=== PATIENT | male | born 1985 | race Caucasian/White ===

== ENCOUNTER 2023-08-25 07:15 | Emergency (ER) | payer BC, OTHER ==
[2023-08-25] MEDS ORDERED: MELA10CA6 PO (07:30)
[2023-08-25] MEDS ORDERED: BISACODYL 10MG SUPP PR ONE (08:35)
[2023-08-25] MEDS ORDERED: COLA100C5 PO (11:30)
[2023-08-25] MEDS ORDERED: MIRA3350 PO (11:30)
[2023-08-25 11:39] VITALS: BP 139/71; TEMP 98.2; O2SAT 95
== END 2023-08-25 11:51 | disposition home or self-care (01) ==
LOC: M ED 07:15
DX: K59.00 Constipation, unspecified (principal); Z79.899 Other long term (current) drug therapy

== ENCOUNTER 2023-10-10 12:02 | Emergency (ER) | payer BC, OTHER ==
[~2023-10-10] VITALS: Ht 175.3 cm; Wt 108.9 kg
[~2023-10-10 12:02] MED LIST: COLA100C5 PO; MELA10CA6 PO; MIRA3350 PO
[2023-10-10 13:27] LABS: BASO % 0.4 % (0.0-1.0); EOS % 0.2 % (0.0-3.0); HEMATOCRIT 50.6 % (42.0-52.0); HEMOGLOBIN 17.2 g/dl (13.5-17.5); LYMPH % 9.6 % (24.0-44.0); MEAN CORPUSCULAR HEMOGLOBIN 30.6 pg (27.0-33.0); MEAN CORPUSCULAR VOLUME 89.9 fl (80.0-96.0); MONO # 1.1 10^3/uL (0.0-0.8); MONO % 10.5 % (2.0-8.0); NEUTROPHILS # 8.3 10^3/uL (1.5-8.5); NEUTROPHILS % 78.9 % (36.0-66.0); PLATELET COUNT, AUTOMATED 227 10^3/uL (150-450); RED BLOOD COUNT 5.63 10^6/uL (4.30-6.10); WHITE BLOOD COUNT 10.5 10^3/uL (4.0-10.0)
[2023-10-10 13:52] LABS: LIPASE 31 U/L (12-53)
[2023-10-10 13:54] LABS: ALKALINE PHOSPHATASE 140 U/L (46-116); ALT/SGPT 55 U/L (7.0-40); AST/SGOT 17 U/L (<34); BILIRUBIN,DIRECT 0.7 MG/DL (<0.4); BILIRUBIN,TOTAL 2.4 MG/DL (0.3-1.2); BLOOD UREA NITROGEN 8 MG/DL (9-23); CALCIUM LEVEL 9.4 MG/DL (8.5-10.1); CARBON DIOXIDE LEVEL 26 MMOL/L (20-31); CHLORIDE LEVEL 106 MMOL/L (98-107); CREATININE FOR GFR 0.95 MG/DL (0.70-1.30); GLOMERULAR FILTRATION RATE > 60.0 (>60); GLUCOSE, FASTING 93 MG/DL (60-100); SODIUM LEVEL 138 MMOL/L (136-145); TOTAL PROTEIN 7.3 G/DL (5.7-8.2)
[2023-10-10] MEDS: CIPROFLOXACIN 400 MG in IV 1 EA IV ONE (16:36)
[2023-10-10] MEDS: NS 1,000 ML IV ONE (16:37)
[2023-10-10] MEDS: metroNIDAZOLE 500 MG in IV 1 EA IV ONE (17:54)
[2023-10-10 18:08] VITALS: BP 129/80; TEMP 98.9; O2SAT 100
[2023-10-10] MEDS ORDERED: AMOX875T2 PO (18:30)
== END 2023-10-10 19:03 | disposition home or self-care (01) ==
LOC: EDBD 12:02 → M ED 12:02
DX: K35.80 Unspecified acute appendicitis (principal); Z79.2 Long term (current) use of antibiotics; Z79.899 Other long term (current) drug therapy
CPT/HCPCS: 74176; 80048; 80076; 81001; 83690; 85025; 87635; 96365; 96366; 99284; J0744; J1836

== ENCOUNTER → 2024-03-09 | Outpatient (REF) | payer OTHER, BC ==
[~2024-03-09] MED LIST changes: +AMOX875T2 PO
[2024-03-09 13:49] LABS: RSV AMPLIFICATION NEGATIVE (NEGATIVE)
== END ==
LOC: M LAB REF 12:14
PROVIDERS: ATTEND Physician Assistant Medical
DX: R50.9 Fever, unspecified (principal)

== ENCOUNTER 2024-04-26 09:41 | Inpatient (IN) | payer BC, OTHER ==
[2024-04-26] VITALS (24 sets, daily range): BP systolic 78–127; BP diastolic 48–82; TEMP 96.3–98.1; O2SAT 71–100
[~2024-04-26] VITALS: Ht 188 cm; Wt 116.5 kg
[2024-04-26] MEDS: ROCURONIUM BROMIDE 50MG/5ML VIAL IV ONE (10:00)
[2024-04-26] MEDS: ETOMIDATE INJ 20MG/10ML VIAL IV ONE (10:00)
[2024-04-26] MEDS: NS 1,000 ML IV SCH (10:14)
[2024-04-26] MEDS: propofoL 1,000 MG in IV 1 EA IV SCH ×2 (10:20→14:05)
[2024-04-26 10:27] LABS: BASO # 0.1 10^3/uL (0.0-0.2); BASO % 0.8 % (0.0-1.0); EOS # 0.3 10^3/uL (0.0-0.5); EOS % 2.5 % (0.0-3.0); HEMATOCRIT 48.1 % (42.0-52.0); HEMOGLOBIN 16.7 g/dl (13.5-17.5); LYMPH % 20.5 % (24.0-44.0); MEAN CORPUSCULAR HEMOGLOBIN 30.1 pg (27.0-33.0); MEAN CORPUSCULAR HGB CONC 34.7 g/dl (32.0-36.5); MEAN CORPUSCULAR VOLUME 86.8 fl (80.0-96.0); MONO % 10.2 % (2.0-8.0); NEUTROPHILS # 6.5 10^3/uL (1.5-8.5); NEUTROPHILS % 65.6 % (36.0-66.0); PLATELET COUNT, AUTOMATED 358 10^3/uL (150-450); RED BLOOD COUNT 5.54 10^6/uL (4.30-6.10); WHITE BLOOD COUNT 9.9 10^3/uL (4.0-10.0)
[2024-04-26 10:33] LABS: ABG BASE EXCESS -3.7 (-2.0-2.0); ABG HCO3 21.2 MMOL/L (22.0-26.0); ABG O2 SATURATION 96.6 % (95.0-99.0); ABG PARTIAL PRESSURE CO2 38.1 mmHg (35.0-45.0); ABG PARTIAL PRESSURE O2 84.8 mmHg (75.0-100.0); ABG STANDARD HCO3 21.4 MMOL/L. (22.0-26.0); ABG TOTAL CO2 22.4 MMOL/L (22.0-29.0); ABG pH (ARTERIAL) 7.363 UNITS (7.350-7.450)
[2024-04-26 10:43] LABS: ETHYL ALCOHOL (ETHANOL) < 0.003 % (0.000-0.010)
[2024-04-26 10:45] LABS: ALBUMIN 4.1 G/DL (3.2-5.2); ALKALINE PHOSPHATASE 122 U/L (46-116); ALT/SGPT 52 U/L (7.0-40); AST/SGOT 23 U/L (<34); BILIRUBIN,DIRECT 0.4 MG/DL (<0.4); BILIRUBIN,TOTAL 1.2 MG/DL (0.3-1.2); BLOOD UREA NITROGEN 14 MG/DL (9-23); CALCIUM LEVEL 9.9 MG/DL (8.5-10.1); CARBON DIOXIDE LEVEL 25 MMOL/L (20-31); CHLORIDE LEVEL 109 MMOL/L (98-107); CPK CREATINE PHOSPHOKINASE 106 U/L (46-171); CREATININE FOR GFR 0.84 MG/DL (0.70-1.30); GLOMERULAR FILTRATION RATE > 60.0 (>60); GLUCOSE, FASTING 117 MG/DL (60-100); POTASSIUM SERUM 3.9 MMOL/L (3.5-5.1); SALICYLATE LEVEL < 3.0 MG/DL (<30); SODIUM LEVEL 143 MMOL/L (136-145); TOTAL PROTEIN 6.9 G/DL (5.7-8.2)
[2024-04-26 10:46] LABS: THYROID STIMULATING HORMONE 2.484 uIU/ML (0.55-4.78)
[2024-04-26 10:51] LABS: AMPHETAMINES LEVEL URINE NEGATIVE (NEGATIVE); BARBITURATES URINE NEGATIVE (NEGATIVE); BENZODIAZEPINES URINE NEGATIVE (NEGATIVE); COCAINE METABOLITE URINE NEGATIVE (NEGATIVE); METHADONE URINE NEGATIVE (NEGATIVE); OPIATES URINE NEGATIVE (NEGATIVE); PHENCYCLIDINE URINE NEGATIVE (NEGATIVE)
[2024-04-26] MEDS: CHARCOAL ACTIVATED LIQUID 25GM/120ML BTL NG ONE (10:54)
[2024-04-26 11:03] LABS: CANNABINOIDS URINE POSITIVE (NEGATIVE)
[2024-04-26] MEDS ORDERED: ALBUTEROL SULFATE 2.5MG/0.5ML INH NEB SOLN NEB PRN (11:30)
[2024-04-26] MEDS: MIDAZOLAM INJ 2MG/2ML VIAL IV PRN (12:13)
[2024-04-26] MEDS ORDERED: BRIN10TA4 PO (13:02)
[2024-04-26] MEDS ORDERED: MM S100C PO (13:05)
[2024-04-26] MEDS ORDERED: LEVOTAB10 PO (13:05)
[2024-04-26] MEDS ORDERED: HOME MED LIST COMPLETE! XX SCH (13:05)
[2024-04-26 13:34] LABS: ABG BASE EXCESS -3.8 (-2.0-2.0); ABG HCO3 22.1 MMOL/L (22.0-26.0); ABG O2 SATURATION 98.1 % (95.0-99.0); ABG PARTIAL PRESSURE CO2 42.7 mmHg (35.0-45.0); ABG PARTIAL PRESSURE O2 104.6 mmHg (75.0-100.0); ABG STANDARD HCO3 21.4 MMOL/L. (22.0-26.0); ABG TOTAL CO2 23.4 MMOL/L (22.0-29.0); ABG pH (ARTERIAL) 7.331 UNITS (7.350-7.450)
[2024-04-26] MEDS: HEPARIN SOD (PORCINE) 5000UNITS/ML 1ML VIAL/SYRINGE SC SCH (14:04)
[2024-04-26] MEDS: PANTOPRAZOLE 40MG VIAL IV SCH (14:04)
[2024-04-26] MEDS ORDERED: FENTANYL DRIP LOCK BOX KEY 1 EACH XX PRN (15:25)
[2024-04-26] MEDS: LR 1,000 ML IV ONE (15:44)
[2024-04-26] MEDS: fentaNYL CITRATE/NaCl 1,000 MCG in IV 1 EA IV SCH (16:07)
[2024-04-26] MEDS: MIDAZOLAM 100MG/100ML-0.9%NACL 100 MG in IV 1 EA IV SCH (19:07)
[2024-04-26] MEDS: LR 1,000 ML IV SCH (20:29)
[2024-04-27] VITALS (31 sets, daily range): BP systolic 99–130; BP diastolic 58–90; TEMP 98.6–100.9; O2SAT 71–100
[2024-04-27 00:29] LABS: BLOOD UREA NITROGEN 17 MG/DL (9-23); CALCIUM LEVEL 9.1 MG/DL (8.5-10.1); CARBON DIOXIDE LEVEL 27 MMOL/L (20-31); CHLORIDE LEVEL 111 MMOL/L (98-107); CREATININE FOR GFR 0.83 MG/DL (0.70-1.30); GLOMERULAR FILTRATION RATE > 60.0 (>60); GLUCOSE, FASTING 106 MG/DL (60-100); POTASSIUM SERUM 4.3 MMOL/L (3.5-5.1); SODIUM LEVEL 142 MMOL/L (136-145)
[2024-04-27 06:12] LABS: ABG BASE EXCESS -0.8 (-2.0-2.0); ABG HCO3 24.6 MMOL/L (22.0-26.0); ABG O2 SATURATION 97.9 % (95.0-99.0); ABG PARTIAL PRESSURE CO2 43.4 mmHg (35.0-45.0); ABG PARTIAL PRESSURE O2 99.6 mmHg (75.0-100.0); ABG STANDARD HCO3 23.9 MMOL/L. (22.0-26.0); ABG pH (ARTERIAL) 7.372 UNITS (7.350-7.450)
[2024-04-27 07:40] LABS: HEMOGLOBIN 13.7 g/dl (13.5-17.5); MEAN CORPUSCULAR HGB CONC 33.4 g/dl (32.0-36.5); MEAN CORPUSCULAR VOLUME 89.7 fl (80.0-96.0); PLATELET COUNT, AUTOMATED 222 10^3/uL (150-450); RED BLOOD COUNT 4.57 10^6/uL (4.30-6.10); WHITE BLOOD COUNT 13.5 10^3/uL (4.0-10.0)
[2024-04-27 08:04] LABS: ALBUMIN 3.4 G/DL (3.2-5.2); ALKALINE PHOSPHATASE 88 U/L (46-116); ALT/SGPT 36 U/L (7.0-40); AST/SGOT 15 U/L (<34); BILIRUBIN,TOTAL 1.5 MG/DL (0.3-1.2); BLOOD UREA NITROGEN 15 MG/DL (9-23); CARBON DIOXIDE LEVEL 27 MMOL/L (20-31); CHLORIDE LEVEL 109 MMOL/L (98-107); GLOMERULAR FILTRATION RATE > 60.0 (>60); GLUCOSE, FASTING 101 MG/DL (60-100); MAGNESIUM LEVEL 2.1 MG/DL (1.8-2.4); POTASSIUM SERUM 4.3 MMOL/L (3.5-5.1); SODIUM LEVEL 141 MMOL/L (136-145); TOTAL PROTEIN 5.7 G/DL (5.7-8.2)
[2024-04-27] MEDS: MULTIVITAMINS/MINERALS THERAP 1 TAB PO SCH (09:00)
[2024-04-27] MEDS: dexmedeTOMidine 200 MCG in IV 1 EA IV SCH (10:03)
[2024-04-27] MEDS: FOLIC ACID 1MG TAB PO SCH (13:06)
[2024-04-27] MEDS: THIAMINE 100 MG TAB PO SCH (13:06)
[2024-04-28] VITALS (39 sets, daily range): BP systolic 118–144; BP diastolic 73–92; TEMP 100.6–101.7; O2SAT 93–100
[2024-04-28] MEDS: ACETAMINOPHEN 325 MG TAB PO PRN (01:21)
[2024-04-28 05:01] LABS: HEMATOCRIT 39.1 % (42.0-52.0); HEMOGLOBIN 13.3 g/dl (13.5-17.5); MEAN CORPUSCULAR HEMOGLOBIN 30.5 pg (27.0-33.0); MEAN CORPUSCULAR VOLUME 89.7 fl (80.0-96.0); PLATELET COUNT, AUTOMATED 168 10^3/uL (150-450); RED BLOOD COUNT 4.36 10^6/uL (4.30-6.10); WHITE BLOOD COUNT 9.5 10^3/uL (4.0-10.0)
[2024-04-28 05:28] LABS: ALBUMIN 3.1 G/DL (3.2-5.2); ALKALINE PHOSPHATASE 82 U/L (46-116); ALT/SGPT 30 U/L (7.0-40); AST/SGOT 22 U/L (<34); BILIRUBIN,TOTAL 1.5 MG/DL (0.3-1.2); BLOOD UREA NITROGEN 10 MG/DL (9-23); CALCIUM LEVEL 8.7 MG/DL (8.5-10.1); CARBON DIOXIDE LEVEL 26 MMOL/L (20-31); CHLORIDE LEVEL 110 MMOL/L (98-107); CREATININE FOR GFR 0.84 MG/DL (0.70-1.30); GLOMERULAR FILTRATION RATE > 60.0 (>60); GLUCOSE, FASTING 105 MG/DL (60-100); MAGNESIUM LEVEL 1.8 MG/DL (1.8-2.4); POTASSIUM SERUM 3.5 MMOL/L (3.5-5.1); SODIUM LEVEL 141 MMOL/L (136-145); TOTAL PROTEIN 5.6 G/DL (5.7-8.2)
[2024-04-28 05:48] LABS: ABG HCO3 23.5 MMOL/L (22.0-26.0); ABG O2 SATURATION 96.8 % (95.0-99.0); ABG PARTIAL PRESSURE CO2 34.9 mmHg (35.0-45.0); ABG PARTIAL PRESSURE O2 79.8 mmHg (75.0-100.0); ABG STANDARD HCO3 24.5 MMOL/L. (22.0-26.0); ABG TOTAL CO2 24.6 MMOL/L (22.0-29.0); ABG pH (ARTERIAL) 7.447 UNITS (7.350-7.450)
[2024-04-28] MEDS: MIDAZOLAM INJ 2MG/2ML VIAL IV ONE ×2 (08:30→09:40)
[2024-04-28] MEDS: PIPERACILLIN/TAZOBACTAM SOD 4.5 GM in D5W MINI-BAG PLUS 50 ML IV SCH (08:38)
[2024-04-28] MEDS ORDERED: fentaNYL 100 MCG/2 ML INJECTION As Ordered ONE (09:26)
[2024-04-28] MEDS: fentaNYL 100 MCG/2 ML INJECTION IV ONE (09:58)
[2024-04-28] MEDS: IBUPROFEN 100MG 5ML SUSP UDC DYE FREE PO ONE (14:46)
[2024-04-28] MEDS: ACETAMINOPHEN *IV* 1,000 MG in IV 1 EA IV PRN (14:47)
[2024-04-29] VITALS (23 sets, daily range): BP systolic 114–156; BP diastolic 70–96; TEMP 98.2–101.4; O2SAT 93–98
[2024-04-29 04:51] LABS: HEMOGLOBIN 13.1 g/dl (13.5-17.5); MEAN CORPUSCULAR HEMOGLOBIN 30.2 pg (27.0-33.0); MEAN CORPUSCULAR HGB CONC 33.6 g/dl (32.0-36.5); MEAN CORPUSCULAR VOLUME 89.9 fl (80.0-96.0); PLATELET COUNT, AUTOMATED 176 10^3/uL (150-450); RED BLOOD COUNT 4.34 10^6/uL (4.30-6.10); WHITE BLOOD COUNT 10.6 10^3/uL (4.0-10.0)
[2024-04-29 05:16] LABS: ALBUMIN 2.8 G/DL (3.2-5.2); ALKALINE PHOSPHATASE 92 U/L (46-116); ALT/SGPT 26 U/L (7.0-40); AST/SGOT 21 U/L (<34); BILIRUBIN,TOTAL 2.4 MG/DL (0.3-1.2); BLOOD UREA NITROGEN 8 MG/DL (9-23); CALCIUM LEVEL 8.8 MG/DL (8.5-10.1); CARBON DIOXIDE LEVEL 27 MMOL/L (20-31); CHLORIDE LEVEL 108 MMOL/L (98-107); CREATININE FOR GFR 0.77 MG/DL (0.70-1.30); GLOMERULAR FILTRATION RATE > 60.0 (>60); GLUCOSE, FASTING 130 MG/DL (60-100); MAGNESIUM LEVEL 1.8 MG/DL (1.8-2.4); POTASSIUM SERUM 3.5 MMOL/L (3.5-5.1); SODIUM LEVEL 140 MMOL/L (136-145); TOTAL PROTEIN 5.5 G/DL (5.7-8.2)
[2024-04-29 06:36] LABS: ABG BASE EXCESS 0.8 (-2.0-2.0); ABG HCO3 24.9 MMOL/L (22.0-26.0); ABG O2 SATURATION 97.4 % (95.0-99.0); ABG PARTIAL PRESSURE CO2 38.1 mmHg (35.0-45.0); ABG STANDARD HCO3 25.2 MMOL/L. (22.0-26.0); ABG TOTAL CO2 26.1 MMOL/L (22.0-29.0); ABG pH (ARTERIAL) 7.433 UNITS (7.350-7.450)
[2024-04-29] MEDS: IBUPROFEN 800 MG TAB PO PRN (17:40)
[2024-04-29] MEDS: ONDANSETRON 4MG 2ML VIAL IV PRN (17:43)
[2024-04-29] MEDS ORDERED: methocarbamoL 500 MG TAB PO PRN (20:20)
[2024-04-29] MEDS ORDERED: ACETAMINOPHEN 325 MG TAB PO PRN (20:20)
[2024-04-30] VITALS (7 sets, daily range): BP systolic 132–144; BP diastolic 88–90; TEMP 98.2–99.1; O2SAT 87–96
[2024-04-30] MEDS: RAMELTEON 8 MG TAB (ROZEREM) PO PRN (01:39)
[2024-04-30] MEDS: ONDANSETRON 4MG 2ML VIAL IV PRN (02:11)
[2024-04-30] MEDS: HALOPERIDOL LACTATE 5MG/ML VIAL IV ONE (03:48)
[2024-04-30] MEDS ORDERED: ISOVUE-370 76% 100ML VIAL As Ordered ONE (03:52)
[2024-04-30] MEDS ORDERED: BISACODYL 10MG SUPP PR PRN (10:50)
[2024-04-30] MEDS ORDERED: KETOROLAC 30 MG/ML 1ML VIAL IV PRN (10:50)
[2024-04-30] MEDS: D5W/0.9% SODIUM CHLORIDE 1,000 ML IV SCH (12:34)
[2024-04-30] MEDS: PROCHLORPERAZINE 10MG 2ML VIAL IV PRN (12:35)
[2024-04-30] MEDS: PANTOPRAZOLE 40MG VIAL IV SCH (21:26)
[2024-05-01] MEDS: LIDOCAINE 2% 5ML JELLY UROJET TOP ONE (03:11)
[2024-05-01 03:37] VITALS: BP 139/89; TEMP 98.2; O2SAT 92
[2024-05-01] MEDS: PANTOPRAZOLE 40MG TAB (PROTONIX) PO SCH (09:52)
[2024-05-01 12:00] VITALS: BP 140/89; TEMP 98.2; O2SAT 94
[2024-05-01] MEDS: CEPHALEXIN 500 MG CAP PO SCH (13:38)
[2024-05-01 20:31] VITALS: BP 145/101; TEMP 97.9; O2SAT 93
[2024-05-02 05:45] VITALS: BP 143/102; TEMP 98.1; O2SAT 96
[2024-05-02] MEDS: FUROSEMIDE 40MG/4ML VIAL IV ONE (08:39)
[2024-05-02] MEDS ORDERED: Multivitamins PO (09:31)
[2024-05-02] MEDS ORDERED: CEPH500C PO (09:31)
[2024-05-02] MEDS ORDERED: PANT40TA29 PO (09:31)
[2024-05-02] MEDS ORDERED: FOLI1TAB11 PO (10:44)
[2024-05-02] MEDS ORDERED: THIA100TA PO (10:44)
== END 2024-05-02 12:12 | DRG 812 ==
LOC: M ED 09:41 → EDBD 09:41 → M ED INP 11:05 → M ICU 11:47 → M MSPAV 04-29 16:45
PROVIDERS: ADMIT Internal Medicine Pulmonary Disease; ATTEND Internal Medicine Nephrology
PROC: 5A1945Z Respiratory Ventilation, 24-96 Consecutive Hours (ICD-10-PCS; principal; 2024-04-26)
PROC: 0BH17EZ Insertion of Endotracheal Airway into Trachea, Via Natural or Artificial Opening (ICD-10-PCS; 2024-04-26)
PROC: 0BCB8ZZ Extirpation of Matter from Left Lower Lobe Bronchus, Via Natural or Artificial Opening Endoscopic (ICD-10-PCS; 2024-04-28)
DX: T43.292A Poisoning by other antidepressants, intentional self-harm, initial encounter (principal); J96.00 Acute respiratory failure, unspecified whether with hypoxia or hypercapnia; J69.0 Pneumonitis due to inhalation of food and vomit; A41.9 Sepsis, unspecified organism; G92.9 Unspecified toxic encephalopathy; F31.9 Bipolar disorder, unspecified; K56.7 Ileus, unspecified; T43.622A Poisoning by amphetamines, intentional self-harm, initial encounter; F90.9 Attention-deficit hyperactivity disorder, unspecified type; Z79.899 Other long term (current) drug therapy; Z91.51 Personal history of suicidal behavior

== ENCOUNTER 2024-05-02 10:53 | Inpatient (IN) | payer BC ==
[~2024-05-02] VITALS: Ht 175.3 cm; Wt 111.5 kg
[~2024-05-02 10:53] MED LIST changes: +BRIN10TA4 PO; +CEPH500C PO; +FOLI1TAB11 PO; +LEVOTAB10 PO; +MM S100C PO; +Multivitamins PO; +PANT40TA29 PO; +THIA100TA PO
[2024-05-02] MEDS ORDERED: IBUPROFEN 400MG TAB PO PRN (11:15)
[2024-05-02] MEDS ORDERED: MOM 30ML SUSPENSION UDC PO PRN (11:15)
[2024-05-02] MEDS ORDERED: MAALOX 30 ML SUSP *UDC PO PRN (11:15)
[2024-05-02] MEDS ORDERED: diphenhydrAMINE 25MG CAP PO PRN (11:15)
[2024-05-02] MEDS ORDERED: methocarbamoL 500 MG TAB PO PRN (11:25)
[2024-05-02] MEDS ORDERED: ONDANSETRON 4MG ORAL DISINTEGRATING TAB SL PRN (11:25)
[2024-05-02] MEDS ORDERED: ALBUTEROL 90 MCG/ACT 8GM HFA INHALER INH PRN (11:35)
[2024-05-02 13:11] VITALS: BP_SYST 130; BP_SYST 131; BP_DIAS 90; BP_DIAS 91; TEMP 98.5; O2SAT 96
[2024-05-02 16:04] VITALS: BP 137/93; TEMP 97.7; O2SAT 96
[2024-05-02] MEDS: CEPHALEXIN 500 MG CAP PO SCH (17:42)
[2024-05-02] MEDS: traZODone 50 MG TAB PO PRN (19:53)
[2024-05-02] MEDS: PANTOPRAZOLE 40MG TAB (PROTONIX) PO SCH (19:53)
[2024-05-03] MEDS: RAMELTEON 8 MG TAB (ROZEREM) PO PRN (00:03)
[2024-05-03 06:00] VITALS: BP 141/94; TEMP 98.3; O2SAT 97
[2024-05-03] MEDS: ACETAMINOPHEN TAB 650MG DOSE (2X325MG) PO PRN (06:21)
[2024-05-03] MEDS: FOLIC ACID 1MG TAB PO SCH (08:51)
[2024-05-03] MEDS: THIAMINE 100 MG TAB PO SCH (08:52)
[2024-05-03] MEDS: MULTIVITAMINS/MINERALS THERAP 1 TAB PO SCH (08:52)
[2024-05-03] MEDS: FLUZONE VACCINE TRIVALENT PF(2024-25) 0.5ML SYRINGE IM.IMMUN ONE (08:56)
[2024-05-03 16:08] VITALS: BP 139/81; TEMP 98; O2SAT 98
[2024-05-03] MEDS: buPROPion 75 MG TAB PO SCH (16:30)
[2024-05-03] MEDS: traZODone 100 MG TAB PO SCH (20:55)
[2024-05-04 06:39] VITALS: BP 145/88; TEMP 96.9; O2SAT 98
[2024-05-04] MEDS: lamoTRIgine 25MG TAB PO SCH (08:10)
[2024-05-04 17:30] VITALS: BP 142/75; TEMP 97
[2024-05-05 06:31] VITALS: BP 123/78; TEMP 98; O2SAT 98
[2024-05-05] MEDS ORDERED: METH-1164 PO (08:31)
[2024-05-05] MEDS ORDERED: CEPH500C PO (08:31)
[2024-05-05] MEDS ORDERED: VENTAER INH (08:31)
[2024-05-05] MEDS ORDERED: BUPR75TA5 PO (08:31)
[2024-05-05] MEDS ORDERED: Multivitamins PO (08:31)
[2024-05-05] MEDS ORDERED: LAMI25TA PO (08:31)
[2024-05-05] MEDS ORDERED: RAME8TAB2 PO (08:31)
[2024-05-05] MEDS: ACETAMINOPHEN 325 MG TAB PO PRN (08:35)
== END 2024-05-05 12:30 | disposition home or self-care (01) | DRG 753 ==
LOC: M PSY 12:09
PROVIDERS: ADMIT Psychiatry & Neurology Psychiatry; ATTEND Psychiatry & Neurology Psychiatry
DX: F31.81 Bipolar II disorder (principal); Z91.51 Personal history of suicidal behavior; Z56.3 Stressful work schedule; Z79.899 Other long term (current) drug therapy

== ENCOUNTER → 2024-05-28 | Outpatient (REF) | payer BC, OTHER ==
[~2024-05-28] MED LIST changes: +BUPR75TA5 PO; +LAMI25TA PO; +METH-1164 PO; +RAME8TAB2 PO; +VENTAER INH
[2024-05-28 12:50] LABS: CHOLESTEROL RISK RATIO 5.59 (<5); HDL CHOLESTEROL 36.1 MG/DL (>40); LDL CHOLESTEROL 137.9 MG/DL (<100); NON-HDL-C 165.9 MG/DL
[2024-05-28 12:53] LABS: FREE T4 1.57 NG/DL (0.89-1.76); THYROID STIMULATING HORMONE 3.341 uIU/ML (0.55-4.78)
[2024-05-28 13:16] LABS: HEMOGLOBIN A1c 4.6 % (4.0-6.0)
== END ==
LOC: M LAB REF 12:15
PROVIDERS: ATTEND Family Medicine Addiction Medicine
DX: R63.5 Abnormal weight gain (principal)

== ENCOUNTER 2024-07-22 06:08 | Emergency (ER) | payer BC ==
[~2024-07-22] VITALS: Ht 175.3 cm; Wt 113.6 kg
[2024-07-22] MEDS ORDERED: ONDANSETRON 4MG 2ML VIAL As Ordered ONE (06:21)
[2024-07-22] MEDS: ONDANSETRON 4MG 2ML VIAL IV ONE (06:31)
[2024-07-22] MEDS: NS (Normal Saline) 0.9% 1,000 ML IV ONE (06:31)
[2024-07-22 06:55] LABS: HEMATOCRIT 45.2 % (42.0-52.0); HEMOGLOBIN 15.7 g/dl (13.5-17.5); MEAN CORPUSCULAR HEMOGLOBIN 30.1 pg (27.0-33.0); MEAN CORPUSCULAR HGB CONC 34.7 g/dl (32.0-36.5); MEAN CORPUSCULAR VOLUME 86.6 fl (80.0-96.0); PLATELET COUNT, AUTOMATED 239 10^3/uL (150-450); RED BLOOD COUNT 5.22 10^6/uL (4.30-6.10); WHITE BLOOD COUNT 10.5 10^3/uL (4.0-10.0)
[2024-07-22 07:15] LABS: BLOOD UREA NITROGEN 14 MG/DL (9-23); CALCIUM LEVEL 9.9 MG/DL (8.5-10.1); CARBON DIOXIDE LEVEL 25 MMOL/L (20-31); CHLORIDE LEVEL 105 MMOL/L (98-107); CREATININE FOR GFR 0.99 MG/DL (0.70-1.30); GLOMERULAR FILTRATION RATE > 60.0 (>60); GLUCOSE, FASTING 91 MG/DL (60-100); POTASSIUM SERUM 3.7 MMOL/L (3.5-5.1); SODIUM LEVEL 142 MMOL/L (136-145)
[2024-07-22] MEDS ORDERED: ONDA-282 PO (07:43)
[2024-07-22 07:55] VITALS: BP 138/70; TEMP 98.1; O2SAT 97
[2024-07-26] MEDS ORDERED: LAMO25TA4 PO (13:47)
== END 2024-07-22 08:04 | disposition home or self-care (01) ==
LOC: M ED 06:08
DX: J09.X2 Influenza due to identified novel influenza A virus with other respiratory manifestations (principal); F31.9 Bipolar disorder, unspecified; F32.A Depression, unspecified; F10.10 Alcohol abuse, uncomplicated; Z79.51 Long term (current) use of inhaled steroids; Z79.2 Long term (current) use of antibiotics; Z79.810 Long term (current) use of selective estrogen receptor modulators (SERMs); Z79.899 Other long term (current) drug therapy
CPT/HCPCS: 80048; 85027; 87486; 87581; 87633; 87798; 93005; 93041; 96361; 96374; 99284; J2405

== ENCOUNTER 2024-07-30 10:04 | Day surgery (SDC) | payer BC ==
[~2024-07-30] VITALS: Ht 175.3 cm; Wt 112.5 kg
[~2024-07-30 10:04] MED LIST changes: +LAMO25TA4 PO; +ONDA-282 PO
[2024-07-30] MEDS ORDERED: GLYCOPYRROLATE INJ 0.2 MG/ML 2 ML VIAL As Ordered ONE (12:06)
[2024-07-30] MEDS ORDERED: propofoL 200 MG/20 ML VIAL As Ordered ONE (12:06)
[2024-07-30] MEDS ORDERED: LIDOCAINE 2% 100MG/5ML SDV (FOR ANES.) As Ordered ONE (12:06)
[2024-07-30 12:11] VITALS: TEMP 97.3
[2024-07-30 12:32] VITALS: BP 133/92; O2SAT 99
== END 2024-07-30 12:41 | disposition home or self-care (01) ==
LOC: M OPP 10:04
PROVIDERS: ATTEND Surgery
DX: R13.10 Dysphagia, unspecified (principal); K44.9 Diaphragmatic hernia without obstruction or gangrene; Z79.899 Other long term (current) drug therapy
CPT/HCPCS: 43239; 88305; J1596